=== PATIENT | male | born 1980 | race African-American/Black ===

== ENCOUNTER 2023-09-13 15:44 | Emergency (ER) | payer OTHER ==
[~2023-09-13] VITALS: Ht 188 cm; Wt 109.0 kg
[2023-09-13 15:48] VITALS: BP 144/72; PULSE 77; RESP 16; TEMP 98.6; O2SAT 100
[2023-09-13] MEDS: INSULIN REGULAR (HUMULIN R) 300UNITS/3ML VIAL SUBCUT ONE (16:01)
== END 2023-09-13 16:13 ==
LOC: ER 15:44
DX: E11.65 Type 2 diabetes mellitus with hyperglycemia (principal)
CPT/HCPCS: 99283; J1815